=== PATIENT | female | born 1935 | race Two or more races ===

== ENCOUNTER 2017-12-13 10:04 | Outpatient (CLI) | payer OTHER | END 2017-12-13 10:40 | disposition home or self-care (01) | LOC: RAD 501 10:04 | DX: M17.11 Unilateral primary osteoarthritis, right knee (principal); R07.89 Other chest pain; Z01.810 Encounter for preprocedural cardiovascular examination ==

== ENCOUNTER 2018-09-03 11:35 | Outpatient (CLI) | payer OTHER | END 2018-09-03 11:47 | disposition home or self-care (01) | LOC: RAD 501 11:35 | DX: I15.8 Other secondary hypertension (principal); I10 Essential (primary) hypertension ==

== ENCOUNTER 2019-09-23 10:17 | Outpatient (CLI) | payer OTHER | END 2019-09-23 10:21 | disposition home or self-care (01) | LOC: RAD 10:17 | DX: Z01.811 Encounter for preprocedural respiratory examination (principal) ==